=== PATIENT | male | born 1990 | race African-American/Black ===

== ENCOUNTER 2017-04-25 22:41 | Emergency (ER) | payer SELFPAY ==
--- NOTE | ~2017-04-25 | ER ---
PATIENT'S NAME: RU BOSE [facility] AGE: 27 Y [address] ROOM: [place] [address] LOCATION: [facility] ADMIT DATE: 04/25/2017 ER/Outpatient Report DISCHARGE DATE: 04/26/2017 FAMILY PHYSICIAN: PHYSICIAN, LADONNA ATTENDING PHYSICIAN: Mary Bhardwaj Time of Arrival: 2241 hours. Time Seen: 2336 hours. IDENTIFICATION: A 27-year-old male. CHIEF COMPLAINT: Headache. HISTORY OF PRESENT ILLNESS: The patient is a 27-year-old male with a right-sided headache for 5 days. He does have a history of migraine headaches, this is typical for him right side and with spasms on the right side of his neck. He has taken Tylenol and ibuprofen with no relief. He did receive a Toradol injection in [place] on March 11, which gave him relief at that time. The patient does have nausea and photophobia associated with this, which is typical for him. ALLERGIES: ASPIRIN CAUSES SWELLING. CURRENT MEDICATIONS: Tylenol and ibuprofen p.r.n. MEDICAL PROBLEMS: Migraine headaches. SOCIAL HISTORY: The patient just recently moved from [place] to [place]. He has not established care with a primary care physician. Tobacco, half pack per day. Alcohol use, denies. Drug use, marijuana daily. REVIEW OF SYSTEMS: All systems reviewed and negative other than what is noted in the HPI. FAMILY HISTORY: Mother with migraine headaches. PHYSICAL EXAMINATION: VITAL SIGNS: Height 5 feet 3 inches and weight 54 kg. Blood pressure 131/64, PATIENT'S NAME: RU BOSE [facility] AGE: 27 Y [address] ROOM: [place] [address] LOCATION: [facility] ADMIT DATE: 04/25/2017 ER/Outpatient Report DISCHARGE DATE: 04/26/2017 FAMILY PHYSICIAN: PHYSICIAN, LADONNA ATTENDING PHYSICIAN: Mary Bhardwaj pulse 70, respirations 20, temperature 97.5, and saturations 98%. GENERAL: A 27-year-old male, in obvious distress with headache, 7/10 on the pain scale. HEENT: Head: Normocephalic, atraumatic. Ears: TMs translucent, both ears. Eyes: Pupils equal and reactive to light and accommodation. Extraocular movements intact. Nose: Mucosa pink. No lesions. Mouth: No lesions. Pharynx benign. NECK: Supple. No lymphadenopathy. LUNGS: Clear to auscultation. Breath sounds are equal. HEART: Regular rate and rhythm. No murmur, rub, or gallop. ABDOMEN: Bowel sounds present. Soft, nondistended. No hepatosplenomegaly. No palpable masses. Nontender. SKIN: [place], warm, and dry. No lesions or rashes noted. NEURO: The patient is alert and oriented x4. Cranial nerves 2 through 12 grossly intact. Motor strength 5/5 throughout. Sensation is intact to light touch. IMPRESSION: Migraine headache. PLAN: Toradol 60 mg IM. I did verify that he has had this before at [email or web address], he has and he did tolerate it. Phenergan 50 mg IM. Migraine handout. Home to rest. Tylenol or Advil as needed. Establish care with a primary care physician and follow up in 1 week. Follow up sooner if any problems or concerns. The patient and his significant other understand and agree, and all questions have been answered. MARY BHARDWAJ MD CAR/modl /[id number] d: 04/26/17 0200 t: 04/27/17 0344, OUTPATIENT REPORT
== END 2017-04-26 00:04 | disposition disaster alternative care site (69) ==
LOC: GMED 22:41
DX: G43.909 Migraine, unspecified, not intractable, without status migrainosus (principal); F17.210 Nicotine dependence, cigarettes, uncomplicated; Z88.8 Allergy status to other drugs, medicaments and biological substances
CPT/HCPCS: J1885; J2550

== ENCOUNTER 2017-05-29 04:40 | Emergency (ER) | payer SELFPAY ==
--- NOTE | ~2017-05-29 | ER ---
PATIENT'S NAME: [facility] AGE: 27 Y [address] ROOM: [place] [address] LOCATION: [facility] ADMIT DATE: 05/29/2017 ER/Outpatient Report DISCHARGE DATE: 05/29/2017 FAMILY PHYSICIAN: PHYSICIAN, NO ATTENDING PHYSICIAN: Gene Rodriguez I saw the patient at 0455 hours. CHIEF COMPLAINT: Tooth pain. HISTORY OF PRESENT ILLNESS: This is a 27-year-old male, who comes in with right lower posterior molar tooth pain accompanied with a headache. No drainage. No fever, chills, or sweats. HOME MEDICATIONS: None. ALLERGIES: ASPIRIN. SOCIAL HISTORY: The patient smokes half-a-pack of cigarettes per day. Occasional intake of alcohol. Does have a problem with illicit drugs. SIGNIFICANT PAST MEDICAL HISTORY: Negative except for tobacco abuse, illicit drug use. OPERATIONS: None. REVIEW OF SYSTEMS: All systems reviewed by me are negative with the exception of those discussed in history of present illness. PHYSICAL EXAMINATION: VITAL SIGNS: Temperature 94.9, pulse 69, respirations 18, blood pressure 115/75, O2 saturation on room air is 97%. HEENT: On examination, the patient has a decayed right lower posterior molar with swelling of the gums. No drainage. Little bit of tenderness, submandibular, on the right side. No adenopathy. NECK: Negative. IMPRESSION: PATIENT'S NAME: [facility] AGE: 27 Y [address] ROOM: [place] [address] LOCATION: [facility] ADMIT DATE: 05/29/2017 ER/Outpatient Report DISCHARGE DATE: 05/29/2017 FAMILY PHYSICIAN: PHYSICIAN, NO ATTENDING PHYSICIAN: Gene Rodriguez Decayed, painful right posterior lower molar. PLAN: The patient dismissed home. Observation. Activity as tolerated. Amoxicillin 500 mg 3 times a day #30. [place] 7.5/325 as needed for pain. See a dentist. Follow up with personal physician as needed. GENE RODRIGUEZ MD SDS/modl /[id number] d: 05/29/17927 t: 05/29/17 181, OUTPATIENT REPORT
== END 2017-05-29 05:12 | disposition disaster alternative care site (69) ==
LOC: GMED 04:40
DX: K02.9 Dental caries, unspecified (principal); F17.210 Nicotine dependence, cigarettes, uncomplicated; Z88.8 Allergy status to other drugs, medicaments and biological substances

== ENCOUNTER 2017-05-29 09:25 | Emergency (ER) | payer SELFPAY ==
--- NOTE | ~2017-05-29 | ER ---
PATIENT'S NAME: [facility] AGE: 27 Y [address] ROOM: [place] [address] LOCATION: [facility] ADMIT DATE: 05/29/2017 ER/Outpatient Report DISCHARGE DATE: 05/29/2017 FAMILY PHYSICIAN: , LADONNA ATTENDING PHYSICIAN: Milton See TIME OF ARRIVAL: 0935 hours. TIME OF EVALUATION: 0938 hours. CHIEF COMPLAINT: Tooth pain. HISTORY OF PRESENT ILLNESS: The patient is a 27-year-old male who presents to the emergency department today with a chief complaint of tooth pain. The patient was seen and evaluated last night as well. He was written for a prescription for amoxicillin and [place]. He went home. He reports he was unable to get the medications filled because he has no money and so he came back. He did report that he had a dentist appointment scheduled for Friday. Denies any fevers. Does have chills. No nausea or vomiting. No sore throat. No difficulty swallowing. No hoarse voice. The pain is currently 10/10 in severity. It is sharp, worse whenever he touches it or bites into anything. PAST MEDICAL HISTORY: None. PAST SURGICAL HISTORY: None. SOCIAL HISTORY: The patient smokes half a pack per day for 6 years. Uses marijuana occasionally. Denies illicit drug use. ALLERGIES: ASPIRIN. MEDICATIONS: None. PRIMARY CARE DOCTOR: None. PATIENT'S NAME: [facility] AGE: 27 Y [address] ROOM: [place] [address] LOCATION: [facility] ADMIT DATE: 05/29/2017 ER/Outpatient Report DISCHARGE DATE: 05/29/2017 FAMILY PHYSICIAN: , LADONNA ATTENDING PHYSICIAN: Milton See REVIEW OF SYSTEMS: All systems are reviewed by myself and are negative with the exception of those discussed in the HPI and Past Medical History. PHYSICAL EXAMINATION: VITAL SIGNS: Weight 51.9 kg. Blood pressure 128/74, pulse 69, respiratory rate 20, temperature 96.8, and oxygen saturation 97%. GENERAL: The patient is a 27-year-old male, well developed, well nourished. HEENT: Head is normocephalic and atraumatic. Pupils are equal, round, and reactive to light. Oropharynx is clear. Right molar is severely decayed. There is no obvious abscess noted around it. There is some mild erythema. No purulence is noted. Posterior pharynx is clear. There is no [place] angina. NECK: Supple. There is no nuchal rigidity. There is some right cervical anterior lymphadenopathy. CARDIOVASCULAR: Regular rate and rhythm. No murmurs, rubs, or gallops. LUNGS: Clear to auscultation bilaterally. No wheezes, rales, or rhonchi. ABDOMEN: Soft, nontender, and nondistended. No rebound, rigidity, or guarding. MUSCULOSKELETAL: The patient moves all 4 extremities. SKIN: Warm and dry. There are no rashes or lesions noted. LABORATORY AND X-RAY DATA: None. IMPRESSION: 1. Acute dentalgia. 2. Dental caries. 3. Initial visit. EMERGENCY DEPARTMENT COURSE: The patient was brought back to the examination room. Seen and evaluated by myself. The patient is given an injection of penicillin IM 1.2 million units as well as 60 mg of Toradol IM for pain. I have discussed results of the history and physical with the patient. I have recommended followup with a dentist in 2 days. I have discussed return to care instructions including worsening symptoms or any other concerns, to return to the emergency department as soon as possible. The patient is agreeable. His fiancee is agreeable, without further questions at this time. DISPOSITION: The patient is discharged to home in good condition. PATIENT'S NAME: RU BOSE [facility] AGE: 27 Y [address] ROOM: [place], [place] [address] LOCATION: [facility] ADMIT DATE: 05/29/2017 ER/Outpatient Report DISCHARGE DATE: 05/29/2017 FAMILY PHYSICIAN: PHYSICIAN, NO ATTENDING PHYSICIAN: Milton See DO KJR/katty /[id number] d: 05/29/17 1641 t: 06/01/17 0659, OUTPATIENT REPORT
== END 2017-05-29 10:14 | disposition disaster alternative care site (69) ==
LOC: GMED 09:25
DX: K02.9 Dental caries, unspecified (principal); F17.210 Nicotine dependence, cigarettes, uncomplicated; F11.90 Opioid use, unspecified, uncomplicated; Z88.8 Allergy status to other drugs, medicaments and biological substances
CPT/HCPCS: J0558; J1885